=== PATIENT | male | born 1960 | race Caucasian/White ===

== ENCOUNTER → 2020-12-18 16:03 | Outpatient (CLI) | payer OTHER, SELFPAY ==
--- NOTE | ~2020-12-18 | MR_ITS ---
EXAMINATION: MR shoulder RT wo con DATE: 12/18/2020 17:51 INDICATION: Right shoulder pain. Other shoulder lesions, right shoulder. TECHNIQUE: Magnetic resonance imaging (MRI) of the right shoulder was performed without intravenous c ontrast. Sequences included axial PD-weighted FS FSE, coronal oblique PD-weighted FS FSE and T2-weigh jaja FS FSE, and sagittal oblique T2-weighted FS FSE and T1-weighted FSE. COMPARISON: Right shoulder radiographs 09/15/2020 FINDINGS: Coracoacromial arch: The acromion undersurface is curved in morphology (type II). Subacromial spurring is noted. There is moderate acromioclavicular joint osteoarthritis. There is moderate subacromial/subdeltoid bursitis. Rotator cuff: There is a bursal-sided and articular-sided partial-thickness tear of supraspinatus tendon and anteri or infraspinatus tendon measuring 12 mm anterior to posterior by 22 mm proximal to distal by 70% tend on thickness. Teres minor tendon is normal. There is an articular-sided partial-thickness tear of sub scapularis tendon. There is no asymmetric fatty atrophy of the rotator cuff muscle bellies. Biceps tendon and glenoid labrum: Biceps tendon is medially displaced from the bicipital groove into the subscapularis tendon tear. The re is severe intra-articular biceps tendinopathy. There is a tear of the glenoid labrum from 11:00 to 12:00 (SLAP tear). Fluid: There is a small glenohumeral joint effusion. Bones/cartilage: There is partial-thickness cartilage loss of glenoid, deep at the superior articular surface. The hum eral head cartilage is normal. IMPRESSION: 1. Partial-thickness rotator cuff tears. 2. Moderate glenohumeral joint chondrosis. 3. Severe biceps tendinopathy with displacement of the biceps tendon into the subscapularis tendon te ar. 4. Small glenohumeral joint effusion. 5. Moderate subacromial/subdeltoid bursitis. 6. Moderate acromioclavicular joint osteoarthritis. Reviewed, dictated and finalized at location A. IMPRESSION: 1. Partial-thickness rotator cuff tears. 2. Moderate glenohumeral joint chondrosis. 3. Severe biceps tendinopathy with displacement of the biceps tendon into the s ubscapularis tendon tear. 4. Small glenohumeral joint effusion. 5. Moderate subacromial/subdeltoid bursitis. 6. Moderate acromioclavicular joint osteoarthritis.
== END ==
PROVIDERS: Visit Provider Orthopaedic Surgery
DX: M75.111 Incomplete rotator cuff tear or rupture of right shoulder, not specified as traumatic (principal); M11.211 Other chondrocalcinosis, right shoulder; M75.21 Bicipital tendinitis, right shoulder; M25.411 Effusion, right shoulder; M75.51 Bursitis of right shoulder; M19.011 Primary osteoarthritis, right shoulder
CPT/HCPCS: 73221

== ENCOUNTER → 2020-12-29 04:09 | Outpatient (CLI) | payer OTHER, SELFPAY ==
[2020-12-29 19:01] LABS: SARS-CoV-2 RNA PCR Negative
== END ==
PROVIDERS: Visit Provider Orthopaedic Surgery
DX: Z01.812 Encounter for preprocedural laboratory examination (principal); Z20.822 Contact with and (suspected) exposure to COVID-19
CPT/HCPCS: C9803; U0003; U0005

== ENCOUNTER 2021-01-01 00:35 | Day surgery (SDC) | payer OTHER, SELFPAY ==
[2020-12-29 08:32] VITALS: BMI 32.1
--- NOTE | 2020-12-31 12:12 | P.PNAN_ITS ---
Anes - Initial Pre Proc Eval Procedure: Operation Date: 01/01/21 07:30 Proposed Procedures p Arthroscopic Right Rotator Cuff Repair, Subacromial Decompression, Biceps Tenodesis - Jerson Early MD Date/Time: 12/31/20 12:12 Surgeon: Jerson Early MD Pre Op Diagnosis: tendonitis right rotator cuff Patient Data Age: 60 Gender: M Height: 1.88 m Weight: 113.4 kg Allergies Allergy/AdvReac Type Severity Reaction Status Date / Time No Known Allergies Allergy Verified 01/01/21 06:42 Home Medications Medication Instructions Recorded Confirmed Type apixaban 5 mg tablet 5 mg PO BID 12/08/20 01/01/21 History metoprolol succinate 50 mg 75 mg PO HS tablet 12/08/20 01/01/21 History tablet,extended release 24 hr Patient hx anesthesia problems: none Family hx anesthesia problems: none [facility] Past Medical History Medical History (Updated 12/31/20 @ 12:13 by Nicholas Prieto MD) Arthritis of left knee Atrial fibrillation Obesity Surgical History Surgical History Status post total knee replacement, right Social History Social History Alcohol intake: current Substance use: never Living arrangements: with family Spiritual care concerns: No Anes - Eval Final PreProcedure Day of Procedure 12/31/20 12:12 Patient weight: obese Heart: regular rate and rhythm Lungs: clear to auscultation and normal air movement Airway: Mallampati scale class II Neurological: alert and oriented Last oral intake: >/= 8 hours ASA classification: III Emergent: no Anesthetic plan: proceed Anesthesia type and monitoring: general LMA and ETT Informed Consent: The patient's anesthetic plan and its attendant risks and benefits were discussed with the patient/family/POA. Questions were solicited and answers provided to the satisfaction of the patient/family/POA.
[2021-01-01] VITALS (9 sets, daily range): BP systolic 97–118; BP diastolic 67–84; PULSE 64–78; RESP 12–19; TEMP 36.2; O2SAT 95–100
[2021-01-01] MEDS: ACETAMINOPHEN 500 MG TABLET 1000 MG PO (06:48)
[2021-01-01] MEDS: LACTATED RINGERS 1,000 ML 30 ML IV CONT ×2 (06:54→10:30)
[2021-01-01] MEDS: KETOROLAC 15 MG/ML VIAL (*BKC) IV PUSH (06:57)
--- NOTE | 2021-01-01 07:22 | WPDHPUPDATE1 ---
History and Physical Update Update Date/Time: 01/01/21 07:22 History and Physical has been reviewed, including an updated exam of the patient. There are NO changes in the patient's condition. Risks, benefits, and alternatives have been discussed and questions answered. Patient agrees to proceed with procedure.
[2021-01-01] MEDS: ceFAZolin 2 GM/D5W 50 ML 2 GM/50 ML BAG IVPB (07:30)
--- NOTE | 2021-01-01 07:32 | WPDANESPNB ---
Anes - Peripheral Nerve Block Date/Time: 01/01/21 07:32 I have discussed with the patient/family/POA the placement of a peripheral nerve block for post-operative pain management, including associated risks, benefits, complications, and side effects. Alternative methods of post-operative analgesia were detailed. Questions were solicited and answers provided to the satisfaction of the patient/family/POA. Time-Out: A pre-procedural Time-Out was completed immediately before starting the procedure and confirmed: Patient Identification, Site, Procedure, Patient Position and the Availability of Requisite Equipment. Clinical Indications: Acute post-operative pain management requested by the operative surgeon. Nerve Block Insertion Note Anes-nerve block: supraclavicular right Patient position: supine Skin prep: chlorhexidine Needle: 22 gauge, stimulating, insulated echogenic needle. Needle length: 80 mm Technique: ultrasound (in plane) Injectate: bupivacaine 0.5% with epi 5 mcg/ml (20cc) Observations: tolerated well Complications: none Procedure start time:: 720 Procedure end time:: 725
[2021-01-01] MEDS: fentaNYL CITRATE INJ (*CRX) 100 MCG/2 ML VIAL 25 MCG IV PUSH ×4 (10:47→11:09)
--- NOTE | 2021-01-01 10:53 | SUR.PHASEI ---
1048-DR. THOMAS AT [facility] TO SPEAK WITH PATIENT THEN, HE UPDATED .
[2021-01-01] MEDS: oxyCODONE HCL (*CRX) 5 MG TAB IR PO (11:51)
--- NOTE | 2021-01-01 13:21 | SUR.PHASEII ---
1310 PT MEETS ANESTHESIA DISCHARGE CRITERIA. PT DRESSED AND WAITING FOR RIDE HOME.
--- NOTE | 2021-01-01 14:54 | W.PM.PROC2 ---
Procedure Note - Detailed Date of Procedure 01/01/21 Pre-op Diagnosis 1. Right rotator cuff tear (including partial subscapularis and supraspinatus 2. Biceps tendinosis 3. Subacromial impingement 4. Degenerative SLAP tear Post-op Diagnosis same Procedure Performed 1. Arthroscopic rotator cuff repair 2. Arthroscopic subacromial decompression 3. Arthroscopic biceps tenodesis 4. Arthroscopic labral debridement Surgeon Jerson Early MD Client Engagement Specialist Edilma Carr PA-C Anesthesia general and regional ( interscalene block) Findings Upper border subscapularis tear with biceps tendinosis slap tear and biceps anterior displacement. Treated with suture anchor repair and biceps tenodesis. Small full-thickness supraspinatus tear treated with bone tunnel and 3 sutures. Evidence of subacromial impingement treated with acromioplasty. Description of Procedure Preoperative antibiotics were given. An interscalene block was administered in the preoperative area. The patient was bought brought to the operating room. A general anesthetic was administered. The patient was carefully positioned in the beach chair position. The head and neck were carefully positioned. The non operative extremity was also carefully positioned. The shoulder was prepped and draped in the usual sterile fashion. Examination was performed. Standard posterior and anterior arthroscopic portals were established. Inflow achieved with the arthroscopic pump using saline and epinephrine. The glenohumeral joint was carefully inspected. Mild glenohumeral degenerative changes. Moderate degenerative superior and posterior superior labral degeneration treated with gentle debridement. Biceps was tagged for repair. The upper border subscapularis was lightly debrided it was mildly retracting. A single PushLock anchor was placed at the lesser tuberosity. Locking loop suture was placed at the subscapularis previously. This was tensioned. Biceps was incorporated with the locking loop suture and then supplementally tied to the upper border of the subscapularis for additional tensioning and support. The supraspinatus showed high-grade partial tearing. After checking on the bursal side a small full-thickness rent was confirmed. Attention was turned to the subacromial space. There was a B4 bursal side tear, and this was easily completed. A complete bursectomy was performed. The rotator cuff and footprint were lightly debrided. A modest acromioplasty was performed. The tear configuration was carefully assessed. At this point, 1 tunnel was created at the rotator cuff. The Tunneler technique was utilized. Three suture tapes were passed through the tunnel. All sutures were then passed through the cuff tissue. The sutures were tied arthroscopically. The arthroscopic instruments were removed. The wounds were closed with 3-0 Monocryl subcuticular suture and steri strips. There were no complications. A sling was applied and the patient brought to the recovery room. Physician fitter's assistant, Edilma Edmondson PA-C, required for surgery; including patient positioning, draping, arthroscopic camera operation, maintaining instrument position, suture retrieval, assist anchor placement, wound closure, and dressing and sling placement. Implants Arthrex push lock anchor. Estimated Blood Loss 20 Drains No Pathology none sent Complications No immediate complications Condition stable Disposition PACU
== END 2021-01-01 13:50 | disposition home or self-care (01) ==
PROVIDERS: PCP Family Medicine; Visit Provider Orthopaedic Surgery
PROC: (CPT 29805; principal; 2021-01-01 07:30)
DX: M75.101 Unspecified rotator cuff tear or rupture of right shoulder, not specified as traumatic (principal); M75.21 Bicipital tendinitis, right shoulder; M75.41 Impingement syndrome of right shoulder; M75.81 Other shoulder lesions, right shoulder; G89.18 Other acute postprocedural pain; I48.91 Unspecified atrial fibrillation; Z79.01 Long term (current) use of anticoagulants; E66.9 Obesity, unspecified; Z68.32 Body mass index [BMI] 32.0-32.9, adult
CPT/HCPCS: 29827; 29828; 29826; 64415; A4565; A9270; C9803; J0690; J1100; J1885; J2250; J2370; J2405; J2704; J3010; J7120; U0003; U0005

== ENCOUNTER → 2021-03-28 00:08 | Outpatient (CLI) | payer OTHER, SELFPAY ==
[2021-03-28 18:46] LABS: SARS-CoV-2 RNA PCR Negative (Negative)
== END ==
PROVIDERS: PCP Family Medicine; Visit Provider Orthopaedic Surgery
DX: Z01.812 Encounter for preprocedural laboratory examination (principal); Z20.822 Contact with and (suspected) exposure to COVID-19
CPT/HCPCS: C9803; U0003; U0005

== ENCOUNTER 2021-03-31 01:35 | Day surgery (SDC) | payer OTHER, SELFPAY ==
[2021-03-30 08:30] VITALS: BMI 32.1
--- NOTE | 2021-03-30 08:39 | PC.NURSE ---
Report to the Outpatient Waiting Room, entrance under the green pavilion located off [facility], at time 1300 on date 03/31/21. OR Time: 1500. - You and your visitor will be asked a series of questions to screen for COVID 19 for your protection. - A mask is required within the hospital. - Only one visitor is allowed at this time. Patient visitors will be guided where to wait when not with patient. Preoperative COVID Testing Requirements: No COVID Test needed if: (proof is required; if not received patient will have Rapid Test prior to entry) - Patient has received COVID Vaccine at least 14 days prior to procedure date or - Patient has positive COVID test result within last 90 days of surgery date. COVID Test needed if above criteria is not met If not COVID vaccinated a COVID test must be conducted within 72 hours of surgery and patient is asked to isolate self from time of testing until procedure. You will go to the [facility] for your COVID testing. The [facility] is located at the corner of [address] [facility]. You will only be called if COVID results are positive and your surgeon may reschedule your elective surgery date. Patients may have clear liquids (water, carbonated beverages, clear teas, apple juice) until 3 hours prior to surgery with a maximum of 20 ounces. - No food from midnight until time of surgery - Infants may have breast milk until 4 hours before surgery, infant formula 6 hours prior to surgery. - Children will be allowed to drink immediately following surgery. If applicable, please bring a bottle or sippy cup to assist with drinking. Juice, water, soda, and popsicles are readily available. For infants on formula, please bring formula the day of surgery. Pacifiers are allowed. Take the following medications with a SIP of water the morning of surgery: PAIN PILL (IF NEEDED) Medications to discontinue per physician: VITAMINS/SUPPLEMENTS Date to take last dose: NOW STOP ELIQUIS PER DR. THOMAS Please no make-up, nail vincentian, hairspray, perfume, deodorant, or body powder the day of surgery. No jewelry (including any body piercings) or valuables the day of surgery, leave them at home. Please take a shower or bath the night before, or the morning of, surgery with an antibacterial soap. Wear comfortable, loose fitting clothing. Children are encouraged to wear pajamas. - Jewelry must be removed prior to entering the operating room. Rings and piercings that are not removed may be cut off. - The hospital will not accept responsibility for valuables. - Please leave all valuables, including medications, at home the day of surgery. If you are going home after surgery, a licensed hog driver must drive you home. - NO public transportation without another adult. - We recommend that an adult stay with you for 24 hours following discharge. - We also recommend that you do not drive, make important decision, drink alcoholic beverages, or take any drugs that were not prescribed by your health care provider for at least 24 hours after your discharge time. For Pediatric surgeries, we recommend two adults accompany the child home (only one inside the building at this time). Follow any additional instructions given to you from your surgeon. Telephone instructions given to BONNY PAZ and asked if any additional questions and then verbalized understanding. Patient advised to call surgeon office or pre surgery nurse liaison [phone] if any additional questions.
--- NOTE | 2021-03-31 09:05 | WPDANESEPPF ---
Anes - Initial Pre Proc Eval Procedure: Operation Date: 03/31/21 15:00 Proposed Procedures p Right Middle Trigger Finger Release - Jerson Early MD Date/Time: 03/31/21 09:05 Surgeon: Jerson Early MD Pre Op Diagnosis: right middle trigger finger Patient Data Age: 61 Gender: M Height: 1.88 m Weight: 113.4 kg Allergies Allergy/AdvReac Type Severity Reaction Status Date / Time No Known Allergies Allergy Verified 03/31/21 12:07 Home Medications Medication Instructions Recorded Confirmed Type apixaban 5 mg tablet 5 mg PO BID 12/08/20 03/31/21 History metoprolol succinate 50 mg 75 mg PO HS tablet 12/08/20 03/31/21 History tablet,extended release 24 hr oxycodone-acetaminophen 5 mg-325 1 tablet PO Q6H PRN #40 tablet MDD 03/25/21 03/31/21 Rx mg tablet 4 ascorbic acid (vitamin C) [Vitamin 500 mg PO DAILY 03/30/21 03/31/21 History C] cholecalciferol (vitamin D3) 25 mcg PO DAILY 03/30/21 03/31/21 History [Vitamin D3] vitamin B67-[id number] acid 1 tablet PO DAILY 03/30/21 03/31/21 History zinc 15 mg PO DAILY 03/30/21 03/31/21 History Patient hx anesthesia problems: none Family hx anesthesia problems: none Results Review: All pre-operative results and documents have been reviewed as part of the pre-operative evaluation. [facility] Past Medical History Medical History Arthritis of left knee Atrial fibrillation Obesity Surgical History Surgical History Status post total knee replacement, right Social History Social History Smoking status: Never smoker Alcohol intake: current Alcohol use details: COUPLE/MONTH Substance use: never Substance use type: does not use Living arrangements: with family Spiritual care concerns: No Anes - Eval Final PreProcedure Day of Procedure 03/31/21 09:05 Patient weight: obese Heart: regular rate and rhythm Lungs: clear to auscultation and normal air movement Airway: Mallampati scale class II Neurological: alert and oriented Last oral intake: >/= 8 hours ASA classification: III Emergent: no Anesthetic plan: proceed Anesthesia type and monitoring: general GIVS and LMA Results Review: All pre-operative results and documents have been reviewed as part of the pre-operative evaluation. Informed Consent: The patient's anesthetic plan and its attendant risks and benefits were discussed with the patient/family/POA. Questions were solicited and answers provided to the satisfaction of the patient/family/POA.
--- NOTE | 2021-03-31 10:18 | WPDHPUPDATE1 ---
History and Physical Update Update Date/Time: 03/31/21 10:18 History and Physical has been reviewed, including an updated exam of the patient. There are NO changes in the patient's condition. Risks, benefits, and alternatives have been discussed and questions answered. Patient agrees to proceed with procedure.
[2021-03-31 12:11] VITALS: BMI 32.8
[2021-03-31 12:19] VITALS: BP 113/70; PULSE 72; RESP 18; O2SAT 98
[2021-03-31] MEDS: LACTATED RINGERS 1,000 ML 30 ML IV CONT (12:30)
[2021-03-31] MEDS: KETOROLAC 15 MG/ML VIAL (*BKC) IV PUSH (12:32)
[2021-03-31] MEDS: ACETAMINOPHEN 500 MG TABLET 1000 MG PO (12:32)
[2021-03-31] MEDS: ceFAZolin 2 GM/D5W 50 ML 2 GM/50 ML BAG IVPB (13:23)
[2021-03-31] MEDS: BUPIVACAINE HCL 0.5% PF 30 ML VIAL INFILTRATE (13:41)
--- NOTE | 2021-03-31 14:08 | P.OP_ITS ---
Procedure Note - Detailed Date of Procedure 03/31/21 Pre-op Diagnosis right middle trigger finger Post-op Diagnosis same Procedure Performed Right trigger finger release. Surgeon Jerson Early MD Soil Science Professor Edilma Carr PA-C Anesthesia general Description of Procedure Sedation with general anesthetic was given. The hand was prepped and draped in the usual sterile fashion with a tourniquet was applied to the arm and well- padded. The limb was exsanguinated and the tourniquet inflated to 250 millimeters of mercury. 0.5% Marcaine with epinephrine was injected at the incision site. 2 milliliters were utilized. A longitudinal incision was created over the A1 lyric. Subcutaneous dissection was carried out bluntly. The A1 lyric was identified and visualized. It was released with the dissection scissors longitudinally. The tourniquet was released. The wound was closed with horizontal mattress Prolene suture 3-0. A sterile bulky dressing was applied. The patient was brought to the recovery room in stable condition. There were no complications. Estimated Blood Loss 2 Complications No immediate complications Condition stable Disposition same day
[2021-03-31 14:09] VITALS: BP 111/78; PULSE 85; RESP 16; O2SAT 93
[2021-03-31 14:24] VITALS: BP 114/75; PULSE 82; RESP 16; O2SAT 95
[2021-03-31 14:39] VITALS: BP 130/89; PULSE 64; RESP 16; O2SAT 95
[2021-03-31] MEDS: oxyCODONE HCL (*CRX) 5 MG TAB IR PO (14:40)
== END 2021-03-31 15:50 | disposition home or self-care (01) ==
PROVIDERS: PCP Family Medicine; Visit Provider Orthopaedic Surgery
PROC: (CPT 26055; principal; 2021-03-31 15:00)
DX: M65.331 Trigger finger, right middle finger (principal); I48.91 Unspecified atrial fibrillation; Z79.01 Long term (current) use of anticoagulants; E66.9 Obesity, unspecified; Z68.32 Body mass index [BMI] 32.0-32.9, adult
CPT/HCPCS: 26055; A9270; C9803; J0690; J1885; J2250; J2370; J2704; J3010; J7120; U0003; U0005

== ENCOUNTER 2022-10-11 13:54 | Outpatient (CLI) | payer OTHER, SELFPAY ==
--- NOTE | 2022-10-11 14:20 | ECG_ITS ---
Measurements Intervals [place] Rate: 90 P: ND: 0 QRS: -12 QRSD: 105 T: 11 QT: 377 QTc: 463 Interpretive Statements ATRIAL FIBRILLATION INCOMPLETE RIGHT BUNDLE BRANCH BLOCK BASELINE ARTIFACT- I, II, III, AVR, AVL, AVF ABNORMAL ECG NO PREVIOUS ECG AVAILABLE FOR COMPARISON Electronically Signed On 10-11-2022 14:55:06 CDT by Arthur Edmond D.O.
== END 2022-10-11 13:55 | disposition home or self-care (01) ==
PROVIDERS: PCP Family Medicine; Visit Provider Orthopaedic Surgery
DX: I48.91 Unspecified atrial fibrillation (principal); Z01.818 Encounter for other preprocedural examination; I45.10 Unspecified right bundle-branch block
CPT/HCPCS: 93005

== ENCOUNTER 2022-10-19 02:40 | Day surgery (SDC) | payer OTHER, SELFPAY ==
[2022-10-11 09:16] VITALS: BMI 35.9
--- NOTE | 2022-10-11 09:23 | PC.NURSE ---
Report to the Outpatient Waiting Room, entrance under the green pavilion located off [facility], at time _0930_ on date 10/19/22_. Planned Procedure Time: _1130 _. Time changes happen often and if your time is changed the preop area will call you the afternoon before. - You and your visitor will be asked to self-screen and do not enter if you have any COVID symptoms. - A mask is optional within the hospital at this time. Patients may have clear liquids (water, carbonated beverages, clear teas, apple juice) until 3 hours prior to surgery with a maximum of 20 ounces. - No food from midnight until time of surgery - Infants may have breast milk until 4 hours before surgery, infant formula 6 hours prior to surgery. - Children will be allowed to drink immediately following surgery. If applicable, please bring a bottle or sippy cup to assist with drinking. Juice, water, soda, and popsicles are readily available. For infants on formula, please bring formula the day of surgery. Pacifiers are allowed. Take the following medications with a SIP of water the morning of surgery: NONE DO NOT STOP ANY OF YOUR OTHER PRESCRIPTION MEDICATIONS PRIOR TO SURGERY ?EXCEPT THE FOLLOWING Medications to discontinue per physician VITAMINS, SUPPLIMENTS 10/16/22 ELIQUIS 10/16/22 PER MD Date to take last dose Please no make-up, nail latvian, hairspray, perfume, deodorant, or body powder the day of surgery. No jewelry (including any body piercings) or valuables the day of surgery, leave them at home. Please take a shower or bath the night before, or the morning of, surgery with an antibacterial soap. Wear comfortable, loose fitting clothing. Children are encouraged to wear pajamas. - Jewelry must be removed prior to entering the operating room. Rings and piercings that are not removed may be cut off. - The hospital will not accept responsibility for valuables. - Please leave all valuables, including medications, at home the day of surgery. If you are going home after surgery, a licensed mobile lounge driver must drive you home. - NO public transportation without another adult if you receive anesthesia. - We recommend that an adult stay with you for 24 hours following discharge. - We also recommend that you do not drive, make important decision, drink alcoholic beverages, or take any drugs that were not prescribed by your health care provider for at least 24 hours after your discharge time. For Pediatric surgeries, we recommend two adults accompany the child home. Follow any additional instructions given to you from your surgeon. If you or anyone in your household have experienced Covid symptoms in the past week, please notify your surgeon or the nurse liaison at the phone number below for possible testing. Telephone instructions given to _PATIENT_and asked if any additional questions and then verbalized understanding. Patient advised to call surgeon office or pre surgery nurse liaison [phone] if any additional questions.
--- NOTE | 2022-10-18 15:52 | WPDANESEPPF ---
Anes - Initial Pre Proc Eval Procedure: Operation Date: 10/19/22 11:30 Proposed Procedures p Left Shoulder Arthroscopic Subacromial Decompression, Distal Clavicle Excision, Proceed As Indicated - Jerson Early MD Date/Time: 10/18/22 15:52 Surgeon: Jerson Early MD Pre Op Diagnosis: left rotator cuff tendonitis and impinge syndr Patient Data Age: 62 Gender: M Height: 1.88 m Weight: 127 kg Allergies Allergy/AdvReac Type Severity Reaction Status Date / Time No Known Allergies Allergy Verified 10/11/22 07:57 Home Medications Medication Instructions Recorded Confirmed Type apixaban 5 mg tablet (Eliquis) 5 mg PO BID 12/08/20 10/11/22 History metoprolol succinate 50 mg 75 mg PO HS 12/08/20 10/11/22 History tablet,extended release 24 hr ascorbic acid (vitamin C) 500 mg 500 mg PO DAILY 03/30/21 10/11/22 History tablet (Vitamin C) cholecalciferol (vitamin D3) 25 25 mcg PO DAILY 03/30/21 10/11/22 History mcg (1,000 unit) tablet (Vitamin D3) vitamin B12 1 mg-folic acid 0.8 mg 1 tablet PO DAILY 03/30/21 10/11/22 History tablet zinc 15 mg tablet 15 mg PO DAILY 03/30/21 10/11/22 History cinnamon bark 500 mg capsule 500 mg PO DAILY 10/11/22 10/11/22 History (Cinnamon) Results Review: All pre-operative results and documents have been reviewed as part of the pre-operative evaluation. [facility] Past Medical History Medical History Arthritis of left knee Atrial fibrillation Obesity Surgical History Surgical History History of arthroscopy of right shoulder (~01/01/21) Right RCR, SAD, Biceps tenodesis, and labral KIM History of hand surgery (~03/31/21) Rt Middle Finger Trigger Finger Release Status post total knee replacement, right (~03/14/18) Social History Social History Smoking status: Never smoker Alcohol intake: current Drinks per week: 5 Alcohol use details: COUPLE/MONTH Substance use: never Substance use type: does not use Lack of Transportation: No Lack of Food: Never True Current Housing: I Have Housing Concerned About Future Housing: No Difficulty Paying Gas/Electric Bills: No Difficulty Paying for Meds: No Currently Unemployed: No Education: High School Diploma/GED Difficulty w/ Childcare or Family Care: No Living arrangements: with family Spiritual care concerns: No Anes - Eval Final PreProcedure Day of Procedure 10/18/22 15:52 Patient weight: obese Heart: regular rate and rhythm Lungs: clear to auscultation and normal air movement Airway: Mallampati scale class II Neurological: alert and oriented Last oral intake: >/= 8 hours ASA classification: III Emergent: no Anesthetic plan: proceed Anesthesia type and monitoring: general ETT Results Review: All pre-operative results and documents have been reviewed as part of the pre-operative evaluation. Informed Consent: The patient's anesthetic plan and its attendant risks and benefits were discussed with the patient/family/POA. Questions were solicited and answers provided to the satisfaction of the patient/family/POA.
--- NOTE | 2022-10-18 15:53 | WPDANESPNB ---
Anes - Peripheral Nerve Block Date/Time: 10/18/22 15:53 I have discussed with the patient/family/POA the placement of a peripheral nerve block for post-operative pain management, including associated risks, benefits, complications, and side effects. Alternative methods of post-operative analgesia were detailed. Questions were solicited and answers provided to the satisfaction of the patient/family/POA. Time-Out: A pre-procedural Time-Out was completed immediately before starting the procedure and confirmed: Patient Identification, Site, Procedure, Patient Position and the Availability of Requisite Equipment. Clinical Indications: Acute post-operative pain management requested by the operative surgeon. Nerve Block Insertion Note Needle: 22 gauge, stimulating, insulated echogenic needle.
[2022-10-19] MEDS: ACETAMINOPHEN 500 MG TABLET 1000 MG PO (09:55)
[2022-10-19] MEDS: LACTATED RINGERS 1,000 ML 30 ML IV CONT ×2 (10:05→15:03)
[2022-10-19 10:08] VITALS: BP 126/85; PULSE 89; RESP 16; TEMP 36.1; O2SAT 95
[2022-10-19] MEDS: KETOROLAC 15 MG/ML VIAL (*BKC) IV PUSH (10:57)
--- NOTE | 2022-10-19 11:02 | WPDHPUPDATE1 ---
History and Physical Update Update Date/Time: 10/19/22 11:02 History and Physical has been reviewed, including an updated exam of the patient. There are NO changes in the patient's condition. Risks, benefits, and alternatives have been discussed and questions answered. Patient agrees to proceed with procedure.
--- NOTE | 2022-10-19 11:23 | WPDANESEPP ---
Anes - Eval Pre Procedure Procedure: Operation Date: 10/19/22 11:30 Proposed Procedures p Left Shoulder Arthroscopic Subacromial Decompression, Distal Clavicle Excision, Proceed As Indicated - Jerson Early MD Date/Time: 10/19/22 11:23 Surgeon: Nneka Pre Op Diagnosis: left rotator cuff tendonitis and impinge syndr Patient Data Age: 62 Gender: M Height: 1.88 m Weight: 126.6 kg Last Vital Signs Temp 97.0 F L 10/19/22 10:08 Pulse 89 10/19/22 10:08 Resp 16 10/19/22 10:08 BP 126/85 10/19/22 10:08 Pulse Ox 95 10/19/22 10:08 O2 Del Method Room Air 10/19/22 10:08 Allergies Allergy/AdvReac Type Severity Reaction Status Date / Time No Known Allergies Allergy Verified 10/19/22 09:42 Home Medications Medication Instructions Recorded Confirmed Type apixaban 5 mg tablet (Eliquis) 5 mg PO BID 12/08/20 10/19/22 History metoprolol succinate 50 mg 75 mg PO HS 12/08/20 10/19/22 History tablet,extended release 24 hr ascorbic acid (vitamin C) 500 mg 500 mg PO DAILY 03/30/21 10/19/22 History tablet (Vitamin C) cholecalciferol (vitamin D3) 25 25 mcg PO DAILY 03/30/21 10/19/22 History mcg (1,000 unit) tablet (Vitamin D3) vitamin B12 1 mg-folic acid 0.8 mg 1 tablet PO DAILY 03/30/21 10/19/22 History tablet zinc 15 mg tablet 15 mg PO DAILY 03/30/21 10/19/22 History cinnamon bark 500 mg capsule 500 mg PO DAILY 10/11/22 10/19/22 History (Cinnamon) ECG: Intervals? Ragland? Rate: ? 90 ? P:? GA: ? 0? QRS:? -12 QRSD: ? 105? T:? 11 QT: ? 377? QTc:? 463? Interpretive Statements ATRIAL FIBRILLATION INCOMPLETE RIGHT BUNDLE BRANCH BLOCK BASELINE ARTIFACT- I, II, III, AVR, AVL, AVF ABNORMAL ECG NO PREVIOUS ECG AVAILABLE FOR COMPARISON Electronically Signed On 10-11-2022 14:55:06 CDT by Arthur Edmond D.O. Patient hx anesthesia problems: none Family hx anesthesia problems: none Results Review: All pre-operative results and documents have been reviewed as part of the pre-operative evaluation. [facility] Past Medical History Medical History Arthritis of left knee Atrial fibrillation Obesity Surgical History Surgical History History of arthroscopy of right shoulder (~01/01/21) Right RCR, SAD, Biceps tenodesis, and labral KIM History of hand surgery (~03/31/21) Rt Middle Finger Trigger Finger Release Status post total knee replacement, right (~03/14/18) Social History Social History Smoking status: Never smoker Alcohol intake: current Drinks per week: 5 Alcohol use details: COUPLE/MONTH Substance use: never Substance use type: does not use Lack of Transportation: No Lack of Food: Never True Current Housing: I Have Housing Concerned About Future Housing: No Difficulty Paying Gas/Electric Bills: No Difficulty Paying for Meds: No Currently Unemployed: No Education: High School Diploma/GED Difficulty w/ Childcare or Family Care: No Living arrangements: with family Spiritual care concerns: No Exam Day of Procedure 10/19/22 11:23 Patient weight: obese Heart: irregular rhythm Lungs: clear to auscultation and normal air movement Airway: Mallampati scale class II
--- NOTE | 2022-10-19 11:31 | P.PNAN_ITS ---
Anes - Eval Final PreProcedure Day of Procedure 10/19/22 11:31 Patient weight: obese Heart: irregular rhythm Lungs: clear to auscultation and normal air movement Airway: Mallampati scale class II Neurological: alert and oriented Last oral intake: >/= 8 hours (food) and 4 hours (water) ASA classification: III Emergent: no Anesthetic plan: proceed Anesthesia type and monitoring: general and standard monitoring Results Review: All pre-operative results and documents have been reviewed as part of the pre- operative evaluation. Informed Consent: The patient's anesthetic plan and its attendant risks and benefits were discussed with the patient/family/POA. Questions were solicited and answers provided to the satisfaction of the patient/family/POA.
[2022-10-19] MEDS: ceFAZolin 3 GM/D5W 100 ML 100 ML IVPB (11:53)
--- NOTE | 2022-10-19 11:55 | WPDANESPNB ---
Anes - Peripheral Nerve Block Date/Time: 10/19/22 11:55 I have discussed with the patient/family/POA the placement of a peripheral nerve block for post-operative pain management, including associated risks, benefits, complications, and side effects. Alternative methods of post-operative analgesia were detailed. Questions were solicited and answers provided to the satisfaction of the patient/family/POA. Time-Out: A pre-procedural Time-Out was completed immediately before starting the procedure and confirmed: Patient Identification, Site, Procedure, Patient Position and the Availability of Requisite Equipment. Clinical Indications: Acute post-operative pain management requested by the operative surgeon. Nerve Block Insertion Note Anes-nerve block: interscalene left Patient position: other (sitting) Skin prep: chlorhexidine Needle: 22 gauge, stimulating, insulated echogenic needle. Needle length: 50 mm Technique: nerve stimulation lost at (mA) (0.3) and ultrasound Technique comment: mid2mg fent 100mcg Injectate: bupivacaine 0.5% with epi 5 mcg/ml (30ml no epi) and dexamethasone (mg) (4) Observations: tolerated well Complications: none Procedure start time:: 1145 Procedure end time:: 115
[2022-10-19] MEDS: EPINEPHrine HCL INJ 1 MG/ML AMPUL IRRIGATION (12:52)
--- NOTE | 2022-10-19 15:02 | W.PM.PROC2 ---
Procedure Note - Detailed Date of Procedure 10/19/22 Pre-op Diagnosis Left shoulder rotator cuff tendinitis, impingement syndrome, acromial clavicular joint arthrosis. Post-op Diagnosis Other (1. Partial rotator cuff tear 2. Subacromial impingement 3. Biceps tendinosis 4. Degenerative labral tear 5. AC joint arthrosis) Procedure Performed Left shoulder 1. Arthroscopic rotator cuff repair 2. Arthroscopic subacromial decompression 3. Arthroscopic biceps tenodesis 4. Arthroscopic labral debridement 5. Arthroscopic distal clavicle excision. Surgeon Jerson Early MD Anesthesia General and Regional ( interscalene block) Findings Significant tendinopathy of the biceps tendon as well as the superior and posterior labrum. Partial tear of the upper subscapularis border repaired with a suture anchor, along with the loop and tack biceps tenodesis. Mid grade articular tearing of the anterior supraspinatus tendon. No significant arthritic changes. Significant bursal inflammation and bursitis with thickening of bursal tissue bands. Mild subacromial impingement and moderate AC joint arthritis treated with subacromial decompression and distal clavicle excision. Bursal side rotator cuff appeared intact with good fibers. Repair of the partial articular sided tear performed with the Regeneten collagen tissue implant utilizing multiple CAROL soft tissue anchors and 2 peek bone anchors. Description of Procedure Preoperative antibiotics were given. An interscalene block was administered in the preoperative area. The patient was bought brought to the operating room. A general anesthetic was administered. The patient was carefully positioned in the beach chair position. The head and neck were carefully positioned. The non operative extremity was also carefully positioned. The shoulder was prepped and draped in the usual sterile fashion. Examination was performed. No abnormal findings on exam. Standard posterior and anterior arthroscopic portals were established. Inflow achieved with the arthroscopic pump using saline and epinephrine. The glenohumeral joint was carefully inspected. Biceps was clearly fraying and partially rupturing near the subscapularis insertion. There is also degenerative labral fraying and instability of the biceps anchor. The subscapularis had low to moderate split tearing in the upper aspect. This was repaired with a SwiveLock anchor utilizing the loop intact biceps tenodesis and a horizontal mattress suture in the upper subscapularis tendon. Mid grade partial articular tearing of the supraspinatus was identified anteriorly. The remaining cuff appeared healthy. No significant arthritis. No contracture the supraspinatus was marked with a PDS suture at the weakest area. Attention was turned to the subacromial space. A complete bursectomy was performed. The bursa was quite thickened and hyperemic. Bursal rotator cuff tissue however looked quite healthy. Probing of the tissue suggested some thinning, but did not review a dramatic soft spot. A modest acromioplasty was performed. 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 It was elected to repair the partial-thickness arc articular side tear with the Regeneten graft. The large size fit nicely over the supraspinatus and anterior infraspinatus tendons. The position was carefully assessed just posterior to the biceps tendon. The graft was fixed in the tendon with multiple CAROL soft tissue anchors. Laterally,2 peek bone anchors approximated the tissue very nicely. The arthroscopic instruments were removed. The wounds were closed with 4-0 Monocryl subcuticular suture and steri strips. There were no complications. A sling was applied and the patient brought to the recovery room. Implants Arthrex biceps tenodesis kit with SwiveLock anchor and loop intact suture. [employer] Regeneten large collagen implant. Multip
[2022-10-19 15:03] VITALS: BP 117/73; PULSE 72; RESP 12; TEMP 37; O2SAT 100
[2022-10-19 15:15] VITALS: BP 115/75; PULSE 70; RESP 14; O2SAT 95
[2022-10-19 15:30] VITALS: BP 101/78; PULSE 75; RESP 20; O2SAT 91
[2022-10-19 15:45] VITALS: BP 108/86; PULSE 75; RESP 16
[2022-10-19] MEDS: oxyCODONE HCL (*CRX) 5 MG TAB IR PO (16:04)
[2022-10-19 16:15] VITALS: BP 116/76; PULSE 85; RESP 16
== END 2022-10-19 16:50 | disposition home or self-care (01) ==
PROVIDERS: PCP Family Medicine; Visit Provider Orthopaedic Surgery
PROC: (CPT 29805; principal; 2022-10-19 11:30)
DX: M75.112 Incomplete rotator cuff tear or rupture of left shoulder, not specified as traumatic (principal); M75.42 Impingement syndrome of left shoulder; M19.012 Primary osteoarthritis, left shoulder; G89.18 Other acute postprocedural pain; I48.91 Unspecified atrial fibrillation; Z79.01 Long term (current) use of anticoagulants; E66.9 Obesity, unspecified; Z68.35 Body mass index [BMI] 35.0-35.9, adult
CPT/HCPCS: 29827; 29828; 29826; 29824; 64415; A4565; A9270; C1713; J0171; J0330; J0690; J1100; J1170; J1885; J2250; J2405; J2704; J3010; J7120